=== PATIENT | male | born 1980 ===

== ENCOUNTER → 2024-02-01 | Emergency (ER) | payer OTHER ==
[~2024-02-01] VITALS: Ht 180.3 cm; Wt 84.1 kg
[~2024-02-01] MED LIST: CLIN300C58 PO; IBUP-2070 PO; IOHEXOL 350 MG/ML 100 ML VIAL ONE; OXYC1TAB6 PO; SODIUM CHLORIDE 0.9% 100 ML ONE
[2024-02-01 09:39] LABS: COVID AG,FIA SOURCE NASAL SWAB
[2024-02-01 10:32] LABS: SARS-COV2 (COVID) ANTIGEN,FIA Negative (Negative)
[2024-02-01 10:33] LABS: INFLUENZA TYPE A NEGATIVE FOR TYPE A (NEGATIVE); INFLUENZA TYPE B NEGATIVE FOR TYPE B (NEGATIVE)
[2024-02-01] MEDS: KETOROLAC TROMETHAMINE 30 MG/ML VIAL IVP ONE ×2 (11:15→16:38)
[2024-02-01] MEDS: MORPHINE SULFATE 2 MG/ML SYRINGE IVP ONE ×2 (11:16→16:38)
[2024-02-01 11:36] LABS: BASOPHILS % (AUTO) 0.7 % (0.0-2.0); EOSINOPHILS % (AUTO) 0.2 % (1.0-6.0); HEMATOCRIT 41.5 % (41-53); HEMOGLOBIN 13.7 g/dL (13.5-17.5); LYMPHOCYTES # (AUTO) 1.7 K/uL (1.0-4.8); MEAN CORPUSCULAR HEMOGLOBIN 31.6 pg (26.0-34.0); MEAN CORPUSCULAR HGB CONC 33.1 G/dL (31.0-37.0); MEAN CORPUSCULAR VOLUME 95 fL (80-100); MONOCYTES # (AUTO) 1.2 K/uL (0.1-1.0); MONOCYTES % (AUTO) 7.7 % (2.0-9.0); NEUTROPHILS # (AUTO) 12.6 K/uL (1.8-7.7); NEUTROPHILS % (AUTO) 80.4 % (40.0-70.0); PLATELET COUNT (AUTO) 279 K/uL (150-450); RED BLOOD CELL COUNT(AUTO) 4.35 MIL/uL (4.50-5.90); RED CELL DISTRIBUTION WIDTH 13.1 % (11.5-14.5); WHITE BLOOD COUNT (AUTO) 15.7 K/uL (4.5-11.0)
[2024-02-01 11:51] LABS: ANION GAP 8 mmol/L (8-16); CALCIUM, TOTAL 8.6 mg/dL (8.8-10.5); CARBON DIOXIDE 27 mmol/L (22-29); CHLORIDE 102 mmol/L (98-107); GLOMERULAR FILTR. RATE CALC > 60 mL/min (>60); GLUCOSE,RANDOM 93 mg/dL (70-110); SODIUM SERUM 137 mmol/L (136-145); UREA NITROGEN, BLOOD 11 mg/dL (7-18)
[2024-02-01] MEDS: AMPICILLIN SODIUM/SULBACTAM NA 3 GM in SODIUM CHLORIDE 0.9% 100 ML IV ONE (13:17)
[2024-02-01] MEDS: SODIUM CHLORIDE 0.9% 1,000 ML IV ONE (14:31)
[2024-02-01 15:39] VITALS: BP 115/64; PULSE 94; RESP 18; TEMP 98.6; O2SAT 98
== END | disposition still patient (30) ==
LOC: EMS 09:22
DX: K12.2 Cellulitis and abscess of mouth (principal); Z87.891 Personal history of nicotine dependence; Z20.822 Contact with and (suspected) exposure to COVID-19
CPT/HCPCS: 99285; 96365; 70491; 96375; 96361; 87426; 80048; 85025; 87804; 36415; 96376; Q9967; J1885; J2270; J0295; J7030; J7050